=== PATIENT | male | born 1985 | race Caucasian/White ===

== ENCOUNTER 2024-12-15 12:19 | Emergency (ER) | payer SELFPAY ==
--- NOTE | 2024-12-15 13:12 | PC.NURSE ---
Pt. decided he didn't want to be seen here.
== END 2024-12-15 13:12 | disposition left against medical advice (07) ==
PROVIDERS: Emergency Provider Registered Nurse
DX: Z53.21 Procedure and treatment not carried out due to patient leaving prior to being seen by health care provider (principal)
CPT/HCPCS: 99199